=== PATIENT | male | born 1970 | race Caucasian/White ===

== ENCOUNTER 2017-09-19 18:38 | Inpatient (IN) | payer BC ==
[~2017-09-19] VITALS: Ht 152.4 cm; Wt 92.5 kg
--- NOTE | ~2017-09-19 | EKG ---
[place] [address] [facility] [email or web address] [address] ELECTROCARDIOGRAM REPORT Name: AUDREY TURPIN Room #: 402-P ADM IN M.R.#: [id number] Admission: 09/19/17 Attend Phys: Gómez Auguste MD Discharge: Date of : 66 Report #: [id number] THIS REPORT FOR: //name// [facility] ED Test Date: 2017-09-19 Test Time: 18:45:51 Pat Name: AUDREY TURPIN Department: Room: 402 Gender: M Medical Physicist: DAWN : 1970 Requested By: Adam Mario Order Number: [id number] MD: Elier Dallas Measurements Intervals Sodus Rate: 57 P: 16 WY: 158 QRS: 25 QRSD: 83 T: 20 QT: 438 QTc: 427 Interpretive Statements Sinus bradycardia Otherwise no significant abnormality No previous ECG available for comparison Electronically Signed On 09-20-2017 8:15:25 TANKERMAN by Elier Dallas [email or web address] <ELECTRONICALLY SIGNED> By: Elier Dallas MD, [facility] 09/20/17 0815 1845 1845 Elier Dallas MD, FACC /EPI
--- NOTE | ~2017-09-19 | EEG ---
[facility] [place] [address] ELECTROENCEPHALOGRAM Name: AUDREY TURPIN Room #: 402-P [facility] IN M.R.#: [id number] Admission: 09/19/17 Attend Phys: Gómez Auguste MD Discharge: 09/20/17 Date of : 66 Report #: [id number] THIS REPORT FOR: //name// CC: Gómez Hartmanvsky DATE OF SERVICE: 09/20/2017 This patient is being evaluated for episodes of speech difficulty. This patient's EEG was done by placing the electrodes by standard 10/20 system of electrode placement. Both referential and sequential montages were used for recording. Background activity in this patient's EEG is about 10 Hz and 40 microvolts. This patient went to sleep that is associated with bilaterally symmetrical sleep spindle and vertex sharp waves. Photic stimulation is unremarkable. Throughout the record, no active epileptiform activity was noted. IMPRESSION: This patient's EEG is within normal limit. Thank you very much for this referral. <ELECTRONICALLY SIGNED> By: Isaac Bee MD 09/28/17 1552 1847 1859 Isaac Bee MD /nt
[2017-09-19 18:44] VITALS: BP 137/113
[2017-09-19] MEDS ORDERED: CELEXA20 MG PO (18:52)
[2017-09-19 19:04] LABS: HEMATOCRIT 42.6 % (42.0-52.0); HEMOGLOBIN 14.9 gm/dL (14.0-18.0); MCH 30.4 pg (26.0-34.0); MCV 86.9 fL (80.0-100.0); RBC 4.91 mil/uL (4.50-6.00); RDW 13.2 % (10.5-14.5); WBC 5.2 thou/uL (4.0-11.0)
[2017-09-19 19:14] LABS: ANION GAP 9 mmol/L (7-16); BUN 11 mg/dL (7-18); CALCIUM 9.6 mg/dL (8.5-10.1); CHLORIDE 102 mmol/L (98-107); CO2 29 mmol/L (21-32); CREATININE 1.1 mg/dL (0.7-1.3); GLUCOSE 107 mg/dL (74-106); POTASSIUM 3.8 mmol/L (3.5-5.1); SODIUM 140 mmol/L (136-145)
[2017-09-19 19:22] LABS: ALBUMIN 4.3 g/dL (3.4-5.0); SGOT 25 U/L (15-37); SGPT 37 U/L (30-65); TOTAL BILIRUBIN 0.5 mg/dL (<0.1-1.0); TROPONIN-I < 0.04 ng/mL (<0.06)
[2017-09-19 19:59] LABS: AMP/METHAMP Negative (Negative); BARBITURATES Negative (Negative); BENZODIAZEPINES Negative (Negative); COCAINE Negative (Negative); METHADONE Negative (Negative); OPIATES Negative (Negative); PCP Negative (Negative)
[2017-09-19 22:05] VITALS: BP 133/76
[2017-09-19 23:35] VITALS: BP 116/77
[2017-09-20 05:01] VITALS: BP 101/61
[2017-09-20 07:12] VITALS: BP 106/68
[2017-09-20 07:39] LABS: ANION GAP 8 mmol/L (7-16); BUN 12 mg/dL (7-18); CALCIUM 8.8 mg/dL (8.5-10.1); CHLORIDE 105 mmol/L (98-107); CHOLESTEROL 208 mg/dL (<200); CO2 28 mmol/L (21-32); CREATININE 1.1 mg/dL (0.7-1.3); GLUCOSE 97 mg/dL (74-106); HDL CHOLESTEROL 39 mg/dL (>40); LDL CHOLESTEROL 139 mg/dL (<100); POTASSIUM 4.1 mmol/L (3.5-5.1); SODIUM 141 mmol/L (136-145); TC:HDL 5.3 Ratio (Not establshd); TRIGLYCERIDE 150 mg/dL (<150); VLDL 30 mg/dL (<40)
[2017-09-20] MEDS ORDERED: ASPIRIN EC81 M1 PO (12:22)
[2017-09-20 16:35] VITALS: BP 118/66
[2017-09-20 16:50] VITALS: BP 106/68
== END 2017-09-20 17:54 | disposition home or self-care (01) | DRG 69 ==
LOC: ER 18:38 → EROBS 21:54 → 4N 21:54
PROVIDERS: Emergency Medicine; Nurse Practitioner Family; Psychiatry & Neurology Neuromuscular Medicine
DX: G45.9 Transient cerebral ischemic attack, unspecified (principal); F41.9 Anxiety disorder, unspecified; E78.5 Hyperlipidemia, unspecified; Z79.82 Long term (current) use of aspirin; Z88.0 Allergy status to penicillin; Z79.899 Other long term (current) drug therapy
CPT/HCPCS: 10790

== ENCOUNTER → 2017-09-25 | Outpatient (CLI) | payer BC ==
[~2017-09-25] MED LIST: ASPIRIN EC81 M1 PO; CELEXA20 MG PO
--- NOTE | ~2017-09-25 | 2DMMODE ---
[facility] [address] [place] [address] 2 D/M-MODE ECHOCARDIOGRAM Name: AUDREY TURPIN Room #: REG CL [facility]#: [id number] Admission: 09/25/17 Attend Phys: Gómez Auguste MD Discharge: Date of : 66 Date of Service: 09/25/17 1545 Report #: [id number] THIS REPORT FOR: //name// APPROVED REPORT Study performed: 09/25/2017 14:06:05 EXAM: Comprehensive 2D, Doppler, and color-flow Echocardiogram Patient Location: Out-Patient Status: routine BSA: 2.13 HR: 58 bpm BP: 139/89 mmHg Rhythm: NSR Other Information Study Quality: Good Indications CVA/TIA Echo Enhancing Agent Indication: Rule out Shunt Agent(s) / Amount(s) Used: Agitated Saline 6 cc 2D Dimensions RVDd: 40.18 mm LVEF(%): 55.81 (>50%) IVSd: 10.27 (7-11mm) LVOT Diam: 19.57 (18-24mm) LVDd: 49.98 mm PWd: 10.45 (7-11mm) Ascending Ao: 30.81 (22-36mm) LVDs: 35.38 (25-40mm) Aortic Root: 30.67 mm James's LVEF: 55.81 % Volumes Left Atrial Volume (Systole) Single Plane 4CH: 49.85 mL Single Plane 2CH: 53.37 mL LA ESV Index: 27.00 mL/m2 Aortic Valve AoV Peak Shane.: 1.77 m/s AO Peak Gr.: 12.59 mmHg LVOT Max P.30 mmHg LVOT Max V: 1.75 m/s JOSAFAT Vmax: 2.97 cm2 [facility] [place] [address] 2 D/M-MODE [facility]ARDIOGRAM [facility]: REG [facility]#: [id number] Admission: 09/25/17 Attend Phys: Gómez Auguste MD Discharge: Date of : 66 Date of Service: 09/25/17 1545 Report #: [id number] Mitral Valve E/A Ratio: 1.1 MV Decel. Time: 234.22 ms MV E Max Shane.: 0.86 m/s MV A Shane.: 0.76 m/s MV PHT: 67.92 ms IVRT: 69.20 ms Pulmonary Valve PV Peak Shane.: 1.68 m/s PV Peak Gr.: 11.26 mmHg Pulmonary Vein P Vein S: 0.48 m/s P Vein A: 0.25 m/s P Vein D: 0.45 m/s P Vein A Dur.: 106.1 msec P Vein S/D Ratio: 1.07 Tricuspid Valve TR Peak Shane.: 2.95 m/s RAP Estimate: 5.00 mmHg TR Peak Gr.: 34.85 mmHg PA Pressure: 40.00 mmHg Left Ventricle The left ventricle is normal size. There is normal LV segmental wall motion. There is normal left ventricular wall thickness. The left ventricular systolic function is normal. LVEF is 55-60%. The left ventricular diastolic function is normal. Right Ventricle The right ventricle is normal size. The right ventricular systolic function is normal. Atria The left atrium size is normal. No shunting by contrast bubble injection. The right atrium size is normal. Aortic Valve The aortic valve is normal in structure. No aortic regurgitation is present. There is no aortic valvular stenosis. Mitral Valve The mitral valve is normal in structure. Trace mitral regurgitation. No evidence of mitral valve stenosis. Tricuspid Valve The tricuspid valve is normal in structure. Trace tricuspid [facility] [address] [place] [address] 2 D/M-MODE ECHOCARDIOGRAM Name: AUDREY TURPIN Room #: REG CL [facility]#: [id number] Admission: 09/25/17 Attend Phys: Gómez Auguste MD Discharge: Date of : 66 Date of Service: 09/25/17 1545 Report #: [id number] regurgitation. Estimated PAP 40 mmHg. Pulmonic Valve The pulmonary valve is normal in structure. Trace pulmonic regurgitation. Great Vessels The aortic root is normal in size. The ascending aorta is normal in size. IVC is normal in size and collapses >50% with inspiration. Pericardium There is no pericardial effusion. <Conclusion> The left ventricular systolic function is normal. LVEF is 55-60%. Normal LV segmental wall motion. No shunting by contrast bubble injection. The aortic valve is normal in structure. No aortic regurgitation or stenosis The mitral valve is normal in structure. Trace mitral regurgitation. Trace tricuspid regurgitation. Estimated pulmonary artery pressure of 40 mmHg. There is no pericardial effusion. <ELECTRONICALLY SIGNED> By: Eleir Dallas MD, FACC 09/25/17 1545 1545 1545 Eleir Dallas MD, FACC /INF
== END ==
LOC: CV 12:03
DX: I63.9 Cerebral infarction, unspecified (principal); G45.9 Transient cerebral ischemic attack, unspecified

== ENCOUNTER 2019-08-30 17:31 | Emergency (ER) | payer BC ==
[~2019-08-30] VITALS: Ht 177.8 cm; Wt 95.3 kg
[2019-08-30] MEDS ORDERED: IBUPROFEN 800800 M1 PO (18:55)
[2019-08-30] MEDS ORDERED: KEFLEX500 M1 PO (18:55)
[2019-08-30 19:45] VITALS: BP 138/88
== END 2019-08-30 19:47 | disposition home or self-care (01) ==
LOC: ER 17:31
DX: S62.521B Displaced fracture of distal phalanx of right thumb, initial encounter for open fracture (principal); F41.9 Anxiety disorder, unspecified; Z86.73 Personal history of transient ischemic attack (TIA), and cerebral infarction without residual deficits; Z88.0 Allergy status to penicillin; Z88.1 Allergy status to other antibiotic agents; W31.89XA Contact with other specified machinery, initial encounter; Y93.89 Activity, other specified; Y92.89 Other specified places as the place of occurrence of the external cause; Y99.8 Other external cause status